=== PATIENT | male | born 1965 | race African-American/Black ===

== ENCOUNTER 2017-10-29 09:33 | Day surgery (SDC) | payer OTHER ==
[~2017-10-29 09:33] MED LIST: LIDOCAINE 1% PF 2 ML VIAL. ID; MORPHINE SULFATE 2 MG/ML DISP.SYRIN. IV; ONDANSETRON PF 4 MG/2 ML VIAL. IV; PROCHLORPERAZINE 10 MG/2 ML VIAL. IV; fentaNYL PF VIAL 100 MCG/2 ML VIAL IV
[2017-10-29] MEDS ORDERED: fentaNYL PF VIAL 100 MCG/2 ML VIAL ×3 (10:01→13:37)
[2017-10-29] MEDS ORDERED: ONDANSETRON PF 4 MG/2 ML VIAL. (10:01)
[2017-10-29] MEDS ORDERED: MIDAZOLAM HCL/PF 2 MG/2 ML VIAL. (10:01)
[2017-10-29] MEDS ORDERED: ROCURONIUM 50 MG/5 ML VIAL. ×2 (10:01→12:26)
[2017-10-29] MEDS ORDERED: PROPOFOL 20 ML IV (10:01)
[2017-10-29] MEDS ORDERED: LIDOCAINE 2% PF Vial for OR 5 ML VIAL. (10:01)
[2017-10-29] MEDS ORDERED: DEXAMETHASONE SOD PHOS 20 MG/5 ML VIAL. (10:01)
[2017-10-29] MEDS: IV RINGERS,LACTATED 1000ML 1,000 ML IV (10:10)
[2017-10-29] MEDS: BUPIVACAINE-EPI 0.25%-1:200000 50 ML VIAL. (12:14)
[2017-10-29] MEDS ORDERED: PHENYLEPHRINE in 0.9% NACL PF 1 MG/10 ML SYRINGE. IV (12:33)
[2017-10-29] MEDS ORDERED: GLYCOPYRROLATE 1 MG/5 ML VIAL. (12:40)
[2017-10-29] MEDS ORDERED: NEOSTIGMINE METHYLSULFATE 5 MG/5 ML SYRINGE. (12:40)
[2017-10-29] MEDS ORDERED: PHENYLEPHRINE 10 MG/ML VIAL. (12:41)
[2017-10-29] MEDS: fentaNYL PF VIAL 100 MCG/2 ML VIAL IV ×3 (13:13→13:42)
[2017-10-29] MEDS: oxyCODONE/APAP 5/325 1 TAB TABLET PO (13:42)
== END 2017-10-29 14:30 | disposition home or self-care (01) ==
LOC: SURG 09:33
DX: K40.30 Unilateral inguinal hernia, with obstruction, without gangrene, not specified as recurrent (principal); F17.210 Nicotine dependence, cigarettes, uncomplicated; Z88.0 Allergy status to penicillin; Z72.89 Other problems related to lifestyle; Z98.890 Other specified postprocedural states
CPT/HCPCS: 49650; A7015; C1781; J1100; J1956; J2250; J2370; J2405; J2704; J2710; J3010; J3490; J7120